=== PATIENT | male | born 1960 | race Caucasian/White ===

== ENCOUNTER → 2020-06-02 14:33 | Outpatient (CLI) | payer OTHER, SELFPAY ==
[2020-06-02 15:25] LABS: C-Reactive Protein Quant 1.2 mg/dL (<1.0)
[2020-06-02 15:29] LABS: Erythrocyte Sedimentation Rate 23 MM/HR (0-15)
== END ==
PROVIDERS: PCP Internal Medicine; Referring Provider Internal Medicine; Visit Provider Internal Medicine
DX: M35.3 Polymyalgia rheumatica (principal)
CPT/HCPCS: 36415; 85651; 86140

== ENCOUNTER → 2020-06-28 16:35 | Outpatient (CLI) | payer OTHER, SELFPAY ==
[2020-06-28 17:58] LABS: Erythrocyte Sedimentation Rate 3 MM/HR (0-15)
== END ==
LOC: LAB 16:40
PROVIDERS: PCP Internal Medicine; Referring Provider Internal Medicine; Visit Provider Internal Medicine
DX: M35.3 Polymyalgia rheumatica (principal)
CPT/HCPCS: 36415; 85651

== ENCOUNTER → 2020-08-29 17:01 | Outpatient (CLI) | payer OTHER, SELFPAY ==
[2020-08-29 17:49] LABS: Erythrocyte Sedimentation Rate 7 MM/HR (0-15)
[2020-08-29 18:14] LABS: C-Reactive Protein Quant 0.6 mg/dL (<1.0)
== END ==
PROVIDERS: PCP Internal Medicine; Referring Provider Internal Medicine; Visit Provider Internal Medicine
DX: M35.3 Polymyalgia rheumatica (principal)
CPT/HCPCS: 36415; 85651; 86140

== ENCOUNTER → 2020-11-06 16:27 | Outpatient (CLI) | payer OTHER, SELFPAY ==
[2020-11-06 19:07] LABS: C-Reactive Protein Quant < 0.5 mg/dL (<1.0)
[2020-11-06 20:11] LABS: Erythrocyte Sedimentation Rate 5 MM/HR (0-15)
== END ==
PROVIDERS: PCP Internal Medicine; Referring Provider Internal Medicine; Visit Provider Internal Medicine
DX: M35.3 Polymyalgia rheumatica (principal)
CPT/HCPCS: 36415; 85651; 86140

== ENCOUNTER → 2020-12-28 16:57 | Outpatient (CLI) | payer OTHER, SELFPAY ==
[2020-12-28 18:18] LABS: C-Reactive Protein Quant 1.6 mg/dL (<1.0)
[2020-12-28 18:21] LABS: Erythrocyte Sedimentation Rate 15 MM/HR (0-15)
== END ==
PROVIDERS: PCP Internal Medicine; Referring Provider Internal Medicine; Visit Provider Internal Medicine
DX: M35.3 Polymyalgia rheumatica (principal)
CPT/HCPCS: 36415; 85651; 86140

== ENCOUNTER → 2021-05-18 16:37 | Outpatient (CLI) | payer OTHER, SELFPAY ==
[2021-05-18 17:50] LABS: Erythrocyte Sedimentation Rate 25 MM/HR (0-15)
== END ==
PROVIDERS: PCP Internal Medicine; Referring Provider Internal Medicine; Visit Provider Internal Medicine
DX: M35.3 Polymyalgia rheumatica (principal)
CPT/HCPCS: 36415; 85651

== ENCOUNTER → 2023-03-28 08:17 | Outpatient (CLI) | payer OTHER, SELFPAY ==
--- NOTE | 2023-03-28 08:20 | DI.RAD.S_ITS ---
PROCEDURE: FL BARIUM SWALLOW INDICATIONS: Esophageal dysphagia COMPARISON: None. FINDINGS: Single contrast esophagram performed as per exam order. No high-grade esophageal stricture identified. A 13 mm barium tablet passed promptly through the esophagus and gastroesophageal junction. No evidence of a Zenker diverticulum or cricopharyngeal bar. Mild esophageal dysmotility visualized with scattered tertiary contractions at the lower esophagus. No hiatal hernia visualized. Gastroesophageal reflux was not observed during the exam, including with provocative maneuvers. IMPRESSION: No high-grade esophageal stricture identified. Dictated by: Lambert Santillan M.D. on 03/28/2023 at 9:33 Approved by: Lambert Santillan M.D. on 03/28/2023 at 9:44
== END ==
PROVIDERS: Referring Provider Otolaryngology; Visit Provider Otolaryngology
DX: R13.19 Other dysphagia (principal)
CPT/HCPCS: 74220